=== PATIENT | male | born 1975 | race Two or more races ===

== ENCOUNTER 2023-06-14 22:18 | Emergency (ER) | payer OTHER ==
[~2023-06-14] VITALS: Ht 172.7 cm; Wt 102.1 kg
[2023-06-14] MEDS ORDERED: PREVACID15 M1 (23:37)
[2023-06-15 03:22] LABS: HEMATOCRIT 45.8 % (39.0-48.0); HEMOGLOBIN 15.9 g/dL (13-16.00); MEAN CELL VOLUME 86.5 fL (80.0-100.00); MEAN CORPUSCULAR HEMOGLOBIN 30.1 pg (27.00-32.0); MEAN CORPUSCULAR HGB CONC 34.8 g/dl (32.0-36.0); PLATELET COUNT 263 K/uL (150-450); RED CELL DISTRIBUTION WIDTH 13.8 % (11.5-14.5)
[2023-06-15 03:30] LABS: CALCIUM 8.9 mg/dL (8.5-10.1); CREATININE SERUM 1.26 mg/dL (0.70-1.30); GFR 61.61; POTASSIUM 3.58 mEq/L (3.5-5.1)
[2023-06-15 06:09] LABS: URINE APPEARANCE Cloudy; URINE BILIRRUBIN Negative (NEGATIVE); URINE BLOOD Small; URINE COLOR Yellow; URINE GLUCOSE Negative (NEGATIVE); URINE LEUKOCYTE Negative; URINE NITRATE Negative; URINE PROTEIN Trace (NEGATIVE)
[2023-06-15 06:22] LABS: URINE BACTERIA 99.5 uL (0.0-1933); URINE EPITHELIAL CELLS 4.1 uL (0.0-38.8); URINE RBC 34.9 uL (0.0-20.8); URINE WBC 4.6 uL (0.0-23.2)
== END 2023-06-15 09:46 | disposition home or self-care (01) ==
LOC: ER 22:18
DX: N20.1 Calculus of ureter (principal)